=== PATIENT | female | born 1995 | race Caucasian/White ===

== ENCOUNTER 2021-05-10 18:53 | Emergency (ER) | payer BC | END 2021-05-10 21:24 | disposition home or self-care (01) | LOC: ER1 18:53 | DX: S67.01XA Crushing injury of right thumb, initial encounter (principal); S60.011A Contusion of right thumb without damage to nail, initial encounter; W23.0XXA Caught, crushed, jammed, or pinched between moving objects, initial encounter | CPT/HCPCS: 73130; 99283 ==